=== PATIENT | female | born 1935 | race Asian ===

== ENCOUNTER 2022-07-01 05:53 | Emergency (ER) | payer MEDICARE ==
[~2022-07-01] VITALS: Ht 160 cm; Wt 73.9 kg
[2022-07-01 05:53] VITALS: BP_SYST 121
--- NOTE | 2022-07-01 06:00 | NUR ---
Pt placed in ER bed 2. taken out of robe and placed in pt gown. Pt hooked on monitor. Presently communicating with daughter at this time.
[2022-07-01 06:53] LABS: BASOPHILS % (AUTO) 0.5 % (0.0-2.0); EOSINOPHILS # (AUTO) 0.1 K/uL (0.0-0.4); EOSINOPHILS % (AUTO) 1.7 % (0.0-4.0); HEMOGLOBIN 13.6 g/dL (12.0-16.0); LYMPHOCYTES # (AUTO) 1.5 K/uL (1.0-5.5); LYMPHOCYTES % (AUTO) 23.5 % (20.5-51.5); MEAN CORPUSCULAR HEMOGLOBIN 28 pg (27-31); MEAN CORPUSCULAR HGB CONC 32 % (32-36); MEAN CORPUSCULAR VOLUME 86 fL (79.0-98.0); MONOCYTES # (AUTO) 0.5 K/uL (0.0-1.0); MONOCYTES % (AUTO) 8.4 % (1.7-9.3); NEUTROPHILS # (AUTO) 4.2 K/uL (1.8-7.7); NEUTROPHILS % (AUTO) 65.9 % (40.0-70.0); PLATELET COUNT (AUTO) 127 K/uL (130-430); RED BLOOD CELL COUNT(AUTO) 4.89 MIL/uL (4.2-6.2); RED CELL DISTRIBUTION WIDTH 15.9 % (9.0-15.0); WHITE BLOOD COUNT (AUTO) 6.4 K/uL (4.8-10.8)
[2022-07-01 07:03] LABS: ANION GAP 13 (5-15); CALCIUM 9.1 mg/dL (8.4-11.0); CHLORIDE 103 mmol/L (98-107); CREATININE 1.18 mg/dL (0.55-1.30); GLUCOSE 216 mg/dL (70-99); UREA NITROGEN, BLOOD 35 mg/dL (8-21)
[2022-07-01 07:09] LABS: ALANINE AMINOTRANSFERASE 17 U/L (12-78); ALBUMIN 3.6 g/dL (3.4-4.8); ASPARTATE AMINOTRANSFERASE 10 U/L (10-37); DIGOXIN 0.8 ng/mL (0.80-2.00); TOTAL BILIRUBIN 0.8 mg/dL (0.0-1.0)
[2022-07-01 08:48] VITALS: BP_SYST 115
--- NOTE | 2022-07-01 08:49 | NUR ---
Patient given written and verbal discharge instructions and verbalizes understanding. ER MD DR DEL VALLE discussed with patient the results and treatment provided. Patient in stable condition. ID arm band removed. IV catheter removed intact and dressing applied, no active bleeding. Patient educated on pain management and to follow up with PMD. Pain Scale 0/10. Opportunity for questions provided and answered. Medication side effect fact sheet provided.
== END 2022-07-01 08:00 | disposition home or self-care (01) ==
LOC: SED 05:53
DX: R00.2 Palpitations (principal); I48.0 Paroxysmal atrial fibrillation; Z88.5 Allergy status to narcotic agent; Z88.8 Allergy status to other drugs, medicaments and biological substances; Z79.899 Other long term (current) drug therapy; Z20.822 Contact with and (suspected) exposure to COVID-19
CPT/HCPCS: 36415; 71045; 80053; 80162; 83880; 84484; 85025; 93005; 99285